=== PATIENT | male | born 1950 | race Caucasian/White ===

== ENCOUNTER 2017-01-13 12:13 | Inpatient (IN) | payer OTHER, MEDICAID ==
[2017-01-13] MEDS ORDERED: NS 1,000 ML IV ONE (12:27)
--- NOTE | 2017-01-13 12:27 | EDPHY ---
HPI/HX/ROS/PE/MDM Narrative: CHIEF COMPLAINT: Fatigue, nausea, vision changes HPI: The patient is a 66 y/o male, with a history of metastatic pancreatic cancer and biliary obstruction, arriving with his at the referral of his oncologist for admission. He was admitted about 1 month ago for abscess in his liver. He was discharged home and subsequently needed an ERCP at [facility]. For the last several days he has been getting IV antibiotics under the care of Dr. Ortega. He's also had progressively worsening nausea during this time. He tells me in the last two days he's been quite fatigued and weak to the point that he is unable to walk short distances across the room. Yesterday after returning home from his IV antibiotic treatment he vomited and was dizzy. This morning he fell and his reports he's had several falls recently, though they both deny head strike or loss of consciousness. The patient endorses headache vision changes that are much worse today. They do not believe he's had brain imaging recently. REVIEW OF SYSTEMS: Aside from elements discussed in the HPI, a comprehensive 10-point review of systems was reviewed and is negative. PMH: Metastatic pancreatic cancer Oncologist: Dr. Snyder SOCIAL HISTORY: at bedside. PHYSICAL EXAM: General:Patient is alert, thin, cachectic, in no acute distress. ENT:Eyes are normal to inspection. ENT inspection normal. Neck: Normal inspection. Full range of motion. Respiratory:No respiratory distress. Breath sounds normal bilaterally. Cardiovascular: Regular rate and rhythm. Strong peripheral pulses. Normal cap refill. Abdomen:The abdomen is nontender to palpation. There are no peritoneal signs. Back: Normal to inspection. No tenderness to palpation. Skin: Normal color. No rash. Warm and dry. Extremities: Normal appearance. Full range of motion. Neuro: Oriented x3. Normal motor function. Normal sensory function. Pronounced vertical nystagmus. ED Course: IV established. Labs drawn including CBC, CHEM, LFTs, PTPTT. 1L IV NS, 4mg IV Zofran administered. Patient declines pain mediation at this time. Head CT ordered. 1340: Head CT shows non-acute occipital lobe stroke. He is well outside the window for intervention such as TPA. Reassessed patient and discussed these findings. He is now complaining of some left-sided chest pain. EKG, chest x-ray , and troponin ordered. The 12 lead EKG was interpreted by myself. See hard copy and/or "tracemaster" electronic copy for interpretation. 1350: Consulted with Dr. Snyder, patient's oncologist, in the ED. She reports he has a complicated history and will follow his admission closely. She will assess patient in the ED. 1402: Spoke with hospitalist service. Dr. Michel accepts admission. Troponin elevated at .225. Hospitalist is aware. - Data Points Imaging Results: Imaging Impressions Head CT 01/13/17 12:53 Impression: New moderate size ischemic infarction involving the right occipital lobe. Results called to Dr. Raffi Lobato at 1:40 PM at the time of the interpretation. Imaging: Discussed imaging studies w/ call center analyst Radiologist, I viewed and interpreted images myself Laboratory Results: Laboratory Results 01/13/17 13:04 01/13/17 13:04 01/13/17 01/13/17 01/13/17 Unknown 13:04 13:04 WBC RBC Hgb Hct MCV MCH MCHC RDW Plt Count MPV Neut % (Auto) Lymph % (Auto) [place] % (Auto) Eos % (Auto) Baso % (Auto) Nucleat RBC Rel Count Absolute Neuts (auto) Absolute Lymphs (auto) Absolute Monos (auto) Absolute Eos (auto) Absolute Basos (auto) Absolute Nucleated RBC Immature Gran % Immature Gran # PT 17.2 SEC H SEC (12.0-15.0) INR 1.41 H (0.83-1.16) APTT 30.0 SEC SEC (23.0-38.0) Sodium 132 mEq/L L mEq/L (134-144) Potassium 3.8 mEq/L mEq/L (3.5-5.2) Chloride 99 mEq/L mEq/L (97-110) Carbon Dioxide 29 mEq/l mEq/l (22-31) Anion Gap 4 mEq/L L mEq/L (8-16) BUN 18 mg/dL mg/dL (7-23) Creatinine 0.8 mg/dL mg/dL (0.7-1.3) Estimated GFR > 60 Glucose 100 mg/dL mg/dL (70-100) Calcium 8.0 mg/dL L mg/dL (8.5-10.4) Total Bilirubin 1.3 mg/dL mg/dL (0.1-1.4) Conjugated Bilirubin 0.5 mg/dL mg/dL (0.0-0.5) Unconjugated Bilirubin 0.8 mg/dL mg/dL (0.0-1.1) AST 47 IU/L IU/L (17-59) ALT 37 IU/L IU/L (21-72) Alkaline Phosphatase 164 IU/L H IU/L (38-126) Troponin I 0.225 ng/mL H ng/mL (0-0.034) Total Protein 6.1 g/dL L g/dL (6.3-8.2) Albumin 2.6 g/dL L g/dL (3.5-5.0) 01/13/17 13:04 WBC 13.73 10^3/uL H 10^3/uL (3.80-9.50) RBC 3.64 10^6/uL L 10^6/uL (4.40-6.38) Hgb 11.3 g/dL L g/dL (13.7-17.5) Hct 34.3 % L % (40.0-51.0) MCV 94.2 fL fL (81.5-99.8) MCH 31.0 pg pg (27.9-34.1) MCHC 32.9 g/dL g/dL (32.4-36.7) RDW 15.3 % H % (11.5-15.2) Plt Count 143 10^3/uL L 10^3/uL (150-400) MPV 9.3 fL fL (8.7-11.7) Neut % (Auto) 85.0 % H % (39.3-74.2) Lymph % (Auto) 4.9 % L % (15.0-45.0) [place] % (Auto) 9.1 % % (4.5-13.0) Eos % (Auto) 0.2 % L % (0.6-7.6) Baso % (Auto) 0.1 % L % (0.3-1.7) Nucleat RBC Rel Count 0.0 % % (0.0-0.2) Absolute Neuts (auto) 11.67 10^3/uL H 10^3/uL (1.70-6.50) Absolute Lymphs (auto) 0.67 10^3/uL L 10^3/uL (1.00-3.00) Absolute Monos (auto) 1.25 10^3/uL H 10^3/uL (0.30-0.80) Absolute Eos (auto) 0.03 10^3/uL 10^3/uL (0.03-0.40) Absolute Basos (auto) 0.02 10^3/uL 10^3/uL (0.02-0.10) Absolute Nucleated RBC 0.00 10^3/uL 10^3/uL (0-0.01) Immature Gran % 0.7 % % (0.0-1.1) Immature Gran # 0.09 10^3/uL 10^3/uL (0.00-0.10) PT INR APTT Sodium Potassium Chloride Carbon Dioxide Anion Gap BUN Creatinine Estimated GFR Glucose Calcium Total Bilirubin Conjugated Bilirubin Unconjugated Bilirubin AST ALT Alkaline Phosphatase Troponin I Total Protein Albumin Medications Given: Discontinued Medications Sodium Chloride (Ns) 1,000 mls @ 0 mls/hr IV ONCE ONE PRN Reason: Wide Open Stop: 01/13/17 12:28 Last Admin: 01/13/17 13:05 Dose: 1,000 mls Ondansetron HCl (Zofran) 4 mg IVP EDNOW ONE Stop: 01/13/17 12:54 Last Admin: 01/13/17 14:07 Dose: 4 mg General Time Seen by Provider: 01/13/17 12:19 Initial Vital Signs: Initial Vital Signs Temperature (C) 36.4 C 01/13/17 12:34 Heart Rate 93 01/13/17 12:34 Respiratory Rate 17 01/13/17 12:34 Blood Pressure 111/84 H 01/13/17 12:34 O2 Sat (%) 94 01/13/17 12:34 O2 Delivery Mode Room Air Allergies/Adverse Reactions: No Known Allergies Allergy (Verified 11/12/15 09:12) Home Medications: Medication Instructions Recorded Ciprofloxacin HCl [Ciprofloxacin 500 mg PO BID 01/13/17 HCl] DAPTOmycin [Cubicin 500mg vial (*)] 450 mg IV DAILY 01/13/17 Ertapenem [Invanz] 1 gm IV DAILY 01/13/17 LORazepam [Ativan (*)] 1 mg PO DAILY PRN 01/13/17 Ondansetron [Zofran Odt] 8 mg PO DAILY PRN 01/13/17 Potassium Chloride [Klor-Con M20] 20 meq PO BID 01/13/17 Zolpidem Tartrate [Ambien 5MG (*)] 5 mg PO HS PRN 01/13/17 Departure - Departure Disposition: [facility] Inpatient Acute Clinical Impression: metastatic, Occipital stroke, non-acute, Vision changes, Weakness, Elevated troponin Pancreatic cancer Qualifiers: Pancreatic malignancy location: other parts of pancreas Qualified Code(s): C25.7 - Malignant neoplasm of other parts of pancreas Nausea & vomiting Qualifiers: Vomiting type: unspecified Vomiting Intractability: non-intractable Qualified Code(s): R11.2 - Nausea with vomiting, unspecified Chest pain Qualifiers: Chest pain type: other chest pain Qualified Code(s): R07.89 - Other chest pain Condition: Fair Referrals: Marlena Snyder MD [Primary Care Provider] - As per Instructions Report Scribed for: Raffi Lobato Report Scribed by: Ambika Niño Date of Report: 01/13/17 Time of Report: 12:26 Physician Review and Approval Statement: Portions of this note were transcribed by an ED scribe. I personally performed the history, physical exam, and medical decision making; and confirm the accuracy of the information in the transcribed note.
[2017-01-13] MEDS ORDERED: ONDANSETRON 4 MG/2 ML VIAL IVP ONE (12:53)
[2017-01-13 13:19] LABS: % IMMATURE GRANULYOCYTES 0.7 % (0.0-1.1); ABSOLUTE IMMATURE GRANULOCYTES 0.09 10^3/uL (0.00-0.10); ADD DIFF? NO; ADD MORPH? NO; ADD SCAN? NO; ATYPICAL LYMPHOCYTE FLAG 10 (0-99); FRAGMENT RBC FLAG 0 (0-99); HEMATOCRIT 34.3 % (40.0-51.0); HEMOGLOBIN 11.3 g/dL (13.7-17.5); LEFT SHIFT FLG 0 (0-99); LIPEMIA HEMOLYSIS FLAG 80 (0-99); MEAN CELL HEMOGLOBIN CONCENTR. 32.9 g/dL (32.4-36.7); MEAN CELL VOLUME 94.2 fL (81.5-99.8); MEAN PLATELET VOLUME 9.3 fL (8.7-11.7); PLATELET CLUMPS FLAG 0 (0-99); PLATELET COUNT 143 10^3/uL (150-400); RED BLOOD CELL COUNT 3.64 10^6/uL (4.40-6.38); RED CELL DISTRIBUTION WIDTH 15.3 % (11.5-15.2)
[2017-01-13 13:34] LABS: INR 1.41 (0.83-1.16); PROTIME(PATIENT) 17.2 SEC (12.0-15.0)
[2017-01-13 13:36] LABS: ALANINE AMINOTRANSFERASE 37 IU/L (21-72); ALBUMIN 2.6 g/dL (3.5-5.0); ALKALINE PHOSPHATASE 164 IU/L (38-126); ANION GAP 4 mEq/L (8-16); ASPARTATE AMINOTRANSFERASE 47 IU/L (17-59); BILIRUBIN,TOTAL 1.3 mg/dL (0.1-1.4); BILIRUBIN-CONJUGATED 0.5 mg/dL (0.0-0.5); BILIRUBIN-UNCONJUGATED 0.8 mg/dL (0.0-1.1); CARBON DIOXIDE 29 mEq/l (22-31); CHLORIDE 99 mEq/L (97-110); CREATININE 0.8 mg/dL (0.7-1.3); GLOMERULAR FILTRATION RATE > 60; GLUCOSE 100 mg/dL (70-100); POTASSIUM 3.8 mEq/L (3.5-5.2); SODIUM 132 mEq/L (134-144); TOTAL PROTEIN 6.1 g/dL (6.3-8.2)
--- NOTE | 2017-01-13 14:07 | CPEKG ---
Heart Rate: 80 RR Interval: 750 P-R Interval: 188 QRSD Interval: 98 QT Interval: 384 QTC Interval: 443 P [place]: 37 QRS [place]: 13 T Wave [place]: 30 EKG Severity - NORMAL ECG - EKG Impression: SINUS RHYTHM Electronically Signed By: Kaila Smalls 13-Jan-2017 22:31:52
[2017-01-13 14:09] LABS: TROPONIN I 0.225 ng/mL (0-0.034)
[2017-01-13] MEDS ORDERED: PROMETHAZINE HCL 25 MG/ML INJ IVP PRN (15:16)
[2017-01-13] MEDS ORDERED: HYDROmorphONE/DILAUDID 1 MG/ML SYR IVP PRN (15:16)
[2017-01-13] MEDS ORDERED: ACETAMINOPHEN 325 MG TAB PO PRN (15:16)
[2017-01-13] MEDS ORDERED: ZOLPIDEM TARTRATE 5 MG TAB PO PRN (15:17)
[2017-01-13] MEDS ORDERED: MECLIZINE HCL 25 MG TAB PO PRN (15:17)
[2017-01-13] MEDS: DEXAMETHASONE 4 MG/ML VIAL IVP SCH ×2 (15:29→20:47)
--- NOTE | 2017-01-13 15:44 | GHP ---
[f rep st] HISTORY AND PHYSICAL DATE OF ADMISSION: 01/13/2017 CHIEF COMPLAINT: Dizziness and anorexia. HISTORY OF PRESENT ILLNESS: This is a 66-year-old male recently diagnosed with metastatic pancreatic cancer. His course has been complicated by biliary obstruction and infection, requiring biliary stent placement in March 2016. His cancer has been unresponsive to chemotherapy, which was last received in November 2016. The patient traveled to [place], [place] at the end of November of this year, where he developed a fever as well as nausea, vomiting and abdominal pain, and was subsequently diagnosed with ascending cholangitis, liver abscess and polymicrobial bacteremia. During that hospital stay, liver drains were placed, which are still in. He tells me his liver drains have not been putting out very much fluid recently. He has been receiving outpatient IV antibiotics under the care of Dr. Ortega, This morning, the patient awoke with vision changes and dizziness. He describes his vision as blurriness and inability to control his eyes. He feels extremely off balance. Once again, he has not been eating much, but this has been going on for the past 5 weeks. He has had multiple bouts of vomiting. He denies any fevers or chills. The patient has been having off and on chest pain that he describes as dull and left-sided. He is unable to tell me if it is exertional. Currently, he is chest painfree. PAST MEDICAL HISTORY: 1. Metastatic pancreatic cancer. 2. Sepsis. 3. Mitral valve repair. 4. Biliary stent placements in March 2016 with repeat stenting done last week at the [facility]. 5. Non-ST segment elevation NH diagnosed during his hospitalization in [place]. MEDICATIONS: Home medications were reviewed. Refer to [employer] for details. ALLERGIES: No known drug allergies. SOCIAL HISTORY: He is . He denies any alcohol, tobacco, or illicit drug use. FAMILY HISTORY: Reviewed and noncontributory. REVIEW OF SYSTEMS: Comprehensive 10-point review of systems was done and is negative, except for as mentioned in the HPI. PHYSICAL EXAM: VITAL SIGNS: Blood pressure 139/89, pulse of 83, respiratory rate 18, O2 saturation 95% on room air, temperature afebrile. GENERAL: Chronically ill-appearing. HEAD: Normocephalic, atraumatic. MOUTH: Dry oral mucosa. NECK: Supple. No lymphadenopathy. CARDIOVASCULAR: S1, S2. No JVD. No lower extremity edema. PULMONARY: Lungs are clear. No wheezes, rales, or rhonchi. ABDOMEN: Soft, but is diffusely tender to palpation. There is mild distention. Bowel sounds are diminished. 2 liver dra[address] are in place in the right upper quadrant. The skin is mildly erythematous, but not obviously infected. EXTREMITIES: No clubbing or cyanosis. NEURO: Cranial nerves II through XII grossly intact. Face is symmetric. SKIN: Clear. No rashes. DIAGNOSTICS: WBC is 13.7, hemoglobin 11.3, hematocrit 34.3, platelets 143. INR 1.41. Sodium 132, potassium 3.8, chloride 99, BUN 18, creatinine 0.8, glucose 100, calcium 8, total bilirubin 1.3, AST 47, ALT 37, alkaline phosphatase 164. Troponin elevated at 0.225. EKG, which I visualized and personally interpreted, shows sinus rhythm, rate 80 beats per minute, some inverted T-waves in V1. No obvious ST segment elevation. Chest x-ray, which I visualized and personally interpreted, final read is pending. He has a small right-sided pleural effusion. No obvious pneumonia. Medication port in place. Head CT shows new moderate-sized ischemic infarction involving the right occipital lobe. ASSESSMENT AND PLAN: This is a 66-year-old male with metastatic pancreatic cancer that has not responded to chemotherapy, presenting with dizziness and visual changes and found to have: 1. Suspected subacute moderate-sized ischemic infarction involving the right occipital lobe. Plan: Discussed case with Dr. Marlena Snyder, who is one of his oncologist's, who has talked to the patient and would like to pursue comfort measures. We will defer further stroke workup given the underlying pancreatic cancer and his overall poor prognosis. 2. Elevated troponin, possibly due to demand ischemia versus non-ST elevation myocardial infarction. Plan: I offered further workup and intervention to the patient including cardiology consultation, which at this time they would like to defer and focus on comfort. We will continue to cycle his troponins. 3. Intractable nausea, vomiting and abdominal pain. Plan: We will start a trial of Decadron and continue Zofran and Phenergan. He will be continued on IV fluids. 4. Polymicrobial Klebsiella/Citrobacter/Enterococcus bacteremia and liver abscess from ascending cholangitis, status post biliary stent exchange on 2016. PLAN: Once again the patient has been under the care of Dr. Ortega from Infectious Disease who should be consulted in the morning. For now, we will continue his daptomycin 450 mg IV daily for VRE as well as ertapenem 1 g IV for aerobic gram-negative positive as well as anaerobic coverage. DISPOSITION: At this time, the patient will be admitted to the hospital under inpatient status. Palliative care/hospice consultation will be ordered. /[id number]/MODL and [id number]/MODL. MTDD
[2017-01-13] MEDS ORDERED: BISACODYL 10 MG SUPP PR PRN (16:28)
[2017-01-13] MEDS: D5W NS W/ 20 KCl/L 1,000 ML IV SCH (18:12)
[2017-01-13] MEDS: ERTAPENEM 1 GM in NS 100 ML IV SCH (18:13)
--- NOTE | 2017-01-13 19:44 | GCON ---
[f rep st] CONSULTATION ONCOLOGY CONSULTATION. REASON FOR CONSULTATION: Metastatic pancreatic cancer. HISTORY OF PRESENT ILLNESS: The patient is a 66-year-old gentleman with metastatic pancreatic cancer whom I met in the fall of 2014 when he presented with obstructive jaundice. 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 Biliary stent was performed. He received initial first-line chemotherapy with Abraxane and gemcitabine from 2004 to 02/2016, completing 10 cycles with excellent response. At that time, we observed him without chemotherapy due to side effects. He developed progression in the fall and resumed second-line chemotherapy with 5FU/ leucovorin and liposomal irinotecan beginning 05/2016. This was discontinued following 12 cycles (11/15/2016) due to progression. He was hoping to participate in a phase 1 vaccine trial. While traveling in [place] in November, he was admitted there with polymicrobial sepsis and hepatic abscesses. Two drains were placed in the right liver. Blood cultures were positive for Klebsiella, Citrobacter, and Enterococcus faecalis. Enterococcus was vancomycin and ampicillin sensitive. Fluid from the abscess demonstrated Enterococcus faecium, resistant to ampicillin, sensitive to daptomycin, sensitive to linezolid, resistant to penicillin and resistant to vancomycin. He was initially treated there with Zosyn and discharged on Augmentin and ciprofloxacin. He then returned home to [place]. He saw Dr. Ortega in consultation who changed his antibiotics to ertapenem and daptomycin which he has been receiving IV in the [facility]. Followup blood cultures were negative. End date of antibiotics was anticipated to be . Dr. Bolton is his general adjuster. He was unable to replace the biliary stent recently and the patient was seen at the [facility] on with placement of a new stent. I do not have those records. The patient has been struggling over the last couple of weeks with nausea, vomiting, and weakness. He has been on scheduled Zofran and continues to have problems. He has not had a bowel movement since Sunday. He is taking very little orally. He has been receiving IV fluids when he comes for antibiotics. He has had no fevers or chills. He called today with continued nausea, vomiting , and feeling "wobbly." He has also had vision changes over the last few days. He describes "geometric shapes" and the inability to focus. This is not restricted to a specific quadrant or field of vision. He also describes "hallucinations" such as thinking he was looking at buildings when he was looking at the mountains. Dennise and Jose Manuel met with [facility] on Sunday for an informational meeting regarding palliative care and hospice services. PAST MEDICAL HISTORY: 1. Metastatic pancreatic cancer as above. 2. Mitral valve repair, 2011. PAST SURGICAL HISTORY: Appendectomy 2012. MEDICATIONS: 1. Ertapenem and daptomycin per Dr. Ortega. 2. He was prescribed ciprofloxacin by the general adjuster at post procedure. 3. Ondansetron. 4. Omeprazole. 5. Ativan p.r.n. 6. Compazine p.r.n. 7. He recently started MS Contin 15 mg b.i.d. 8. He has been using a variety of breakthrough medications including Dilaudid and oxycodone which were prescribed in [place]. ALLERGIES: No known drug allergies. SOCIAL HISTORY: He has been with his partner, Dennise Sher since 2008. They live in [place]. She is his medical power of civil rights attorney. FAMILY HISTORY: His mother at 75 from some type of abdominal cancer. His father had some type of smoking related cancer. He has no children. REVIEW OF SYSTEMS: CONSTITUTIONAL: No fevers or chills. Weight loss. Significant fatigue. He reports spending most of the day in bed or lying down. VISION: Per history of present illness. HEENT: No mucositis. CARDIOVASCULAR: No palpitations. He has had some left-sided chest pain. RESPIRATORY: No cough, dyspnea, pleurisy. GASTROINTESTINAL: Per history of present illness. Dennise reports about 30 cc of drainage from the posterior hepatic drain and nothing from the more anterior drain. NEUROLOGIC: He has had some headaches. Vision as above. No numbness, focal weakness. HEMATOLOGIC : No bleeding or bruising. MUSCULOSKELETAL: No new bony complaints. PHYSICAL EXAMINATION: VITAL SIGNS: Blood pressure 111/84, pulse 93, respirations 17, 94% on room air, temperature 36.4. GENERAL: Thin, fatigued appearing gentleman in no acute distress. HEENT: No scleral icterus. He had some vertical nystagmus when I first saw him in the emergency room. NECK: Supple. CARDIOVASCULAR: Regular rate and rhythm, 1+ bilateral pedal edema. LUNGS: Clear to auscultation bilaterally. ABDOMEN: There are 2 right-sided drains. Positive bowel sounds. Diffuse tenderness without peritoneal signs. NEUROLOGIC: Cranial nerves 3 through 12 intact. No focal findings. LABORATORY STUDIES: WBC 13.7, hemoglobin 11.3, platelets 143,000. Sodium 132, potassium 3.8, chloride 99, bicarbonate 29, BUN 18, creatinine 0.8, glucose 100. Total bilirubin 1.3, direct 0.5, normal transaminases, alkaline phosphatase 164, albumin 2.6. Troponin 0.225. INR 1.4, PTT 30. RADIOLOGIC STUDIES: Noncontrast head CT compared with outside CT from 2016 demonstrates hypodensity in the right occipital lobe, compatible with subacute ischemic infarction in the distribution of the posterior cerebral artery. No evidence of mass or mass effect. No hemorrhage. ADDITIONAL STUDIES: EKG: Normal sinus rhythm, normal. IMPRESSION: 1. Progressive metastatic pancreatic cancer to liver. 2. Refractory nausea and vomiting. 3. Hepatic abscesses, improving with decreased drainage. Completing course of ertapenem and daptomycin. 4. New right occipital ischemic stroke with visual symptoms. I had a long visit with the patient and Dennise in the ER reviewing all of the above. We have been discussing goals and plans for care and advanced care planning for quite some time. He has significantly declined over the last month. He is not a candidate for further therapy. We discussed focusing on supportive care and symptom management to optimize his quality of life. He is in agreement with that. As such, we discussed having another visit with [facility] while in the hospital to discuss home hospice. He would like to remain at home. We discussed code status and he requests to be DNR, which is appropriate. Regarding the apparent ischemic stroke, there was no obvious mass but it was a noncontrast CT. He does have an underlying hypercoagulable state due to his malignancy. CT with contrast or brain MRI would be appropriate. We would discuss palliative radiation if he had evidence of a metastasis, although I think this is unlikely in the setting of pancreatic cancer. In terms of his nausea and anorexia, I recommend a trial of steroids ( dexamethasone 4 mg b.i.d.). His infection is under control and I think the benefit outweighs risk. If ID feels he needs to continue antibiotics, perhaps those can be changed to oral to facilitate him being at home. PLAN: 1. IV fluids, antiemetics. 2. Consider further [employer] imaging. 3. Will reevaluate tomorrow the timing of another meeting with Hospice. 4. Dexamethasone 4 mg b.i.d. 5. DNR. /[id number]/MODL MTDD
[2017-01-13] MEDS: DAPTOmycin 450 MG in NS 100 ML IV SCH (20:30)
[2017-01-13] MEDS: POTASSIUM CL 20 MEQ TAB PO SCH (20:47)
[2017-01-13] MEDS: LORazepam 1 MG TAB PO PRN (20:49)
[2017-01-13] MEDS: ONDANSETRON 4 MG/2 ML VIAL IVP PRN (21:02)
[2017-01-14 05:21] LABS: % IMMATURE GRANULYOCYTES 0.7 % (0.0-1.1); ABSOLUTE IMMATURE GRANULOCYTES 0.12 10^3/uL (0.00-0.10); ADD DIFF? NO; ADD MORPH? NO; ADD SCAN? NO; ATYPICAL LYMPHOCYTE FLAG 10 (0-99); FRAGMENT RBC FLAG 0 (0-99); HEMATOCRIT 34.9 % (40.0-51.0); HEMOGLOBIN 11.5 g/dL (13.7-17.5); LEFT SHIFT FLG 0 (0-99); LIPEMIA HEMOLYSIS FLAG 80 (0-99); MEAN CELL HEMOGLOBIN 30.9 pg (27.9-34.1); MEAN CELL VOLUME 93.8 fL (81.5-99.8); MEAN PLATELET VOLUME 10.1 fL (8.7-11.7); PLATELET CLUMPS FLAG 10 (0-99); PLATELET COUNT 126 10^3/uL (150-400); RED BLOOD CELL COUNT 3.72 10^6/uL (4.40-6.38); RED CELL DISTRIBUTION WIDTH 15.2 % (11.5-15.2)
[2017-01-14] MEDS: D5W NS W/ 20 KCl/L 1,000 ML IV SCH ×2 (05:26→18:58)
[2017-01-14 05:52] LABS: ALANINE AMINOTRANSFERASE 46 IU/L (21-72); ALBUMIN 2.4 g/dL (3.5-5.0); ALKALINE PHOSPHATASE 157 IU/L (38-126); ANION GAP 4 mEq/L (8-16); ASPARTATE AMINOTRANSFERASE 57 IU/L (17-59); CALCIUM 7.8 mg/dL (8.5-10.4); CARBON DIOXIDE 26 mEq/l (22-31); CHLORIDE 102 mEq/L (97-110); CREATININE 0.7 mg/dL (0.7-1.3); GLOMERULAR FILTRATION RATE > 60; GLUCOSE 181 mg/dL (70-100); POTASSIUM 4.6 mEq/L (3.5-5.2); SODIUM 132 mEq/L (134-144); TOTAL PROTEIN 5.8 g/dL (6.3-8.2)
[2017-01-14] MEDS: DEXAMETHASONE 4 MG/ML VIAL IVP SCH ×2 (08:16→21:04)
[2017-01-14] MEDS: POTASSIUM CL 20 MEQ TAB PO SCH ×2 (08:16→21:05)
[2017-01-14] MEDS: ERTAPENEM 1 GM in NS 100 ML IV SCH (08:17)
[2017-01-14] MEDS: ENOXAPARIN 40 MG/0.4 ML SYR SC SCH (08:17)
[2017-01-14] MEDS: ONDANSETRON 4 MG/2 ML VIAL IVP PRN (08:35)
[2017-01-14] MEDS ORDERED: DAPTOMYCIN IV SCH (09:00)
[2017-01-14] MEDS ORDERED: ERTAPENEM 1 GM VIAL IV SCH (09:00)
[2017-01-14] MEDS: DAPTOmycin 450 MG in NS 100 ML IV SCH (10:10)
[2017-01-14] MEDS ORDERED: ASPIRIN 325 MG TAB PO ONE ×2 (10:31→14:45)
--- NOTE | 2017-01-14 11:10 | HOSPPROG ---
Hospitalist Progress Note Assessment/Plan: Occipital CVA with blurred vision - give ASA now, continue daily ASA. Proceed with MRI to evaluate for metastatic component as palliative radiation may be an option. Per H&P, no further w/u was desired. However, pt and his wish to pursue further workup. Will order echo and Neurology consult requested. D/W onc and prefer to keep him on 1N for oncology support. Will defer tele and plan for qd ekg to monitor for a fib. Not likely a good candidate for anticoagulation from onc perspective. Metastatic pancreatic cancer - wishes to consider further treatment options. Pt himself seems more realistic about his terminal illness and they will have palliative care and hospice consults to discuss further. Pain control is addressed, added MS Contin and oral dilaudid. Polymicrobial bacteremia in the setting of ascending cholangitis with liver drains present - on IV ertapenem and daptomycin, followed by Dr. Ortega. Last day of atbx is tomorrow. A GI doc in [place] added oral cipro 2 days ago after placement of a biliary stent, will continue this for now. Elevated troponin - trop is flat, possibly chronic. Pt is chest pain free. No further w/u given limited life expectancy. DNR Dispo - cont inpt, hospice and palliative care consults planned. Subjective: Pt complains of blurred vision. Poor pain control. No fevers. Poor appetite. Had biliary stent placed 2 days ago and cipro added to his daily IV ertapenem and daptomycin. Objective: Vital Signs Temp Pulse Resp BP Pulse Ox 36.4 C 87 18 130/89 H 92 01/14/17 07:20 01/14/17 07:20 01/14/17 07:20 01/14/17 07:20 01/14/17 07:20 Laboratory Results 01/14/17 05:00 01/14/17 05:00 01/13/17 01/14/17 01/15/17 05:59 05:59 05:59 Intake Total 1100 Output Total 625 Balance 475 PT 17.2 SEC (12.0-15.0) H 01/13/17 13:04 INR 1.41 (0.83-1.16) H 01/13/17 13:04 - Physical Exam Constitutional: chronically ill appearing Eyes: other (blurred vision) Ears, Nose, Mouth, Throat: moist mucous membranes Cardiovascular: regular rate and rhythym Respiratory: no respiratory distress, clear to auscultation Gastrointestinal: normoactive bowel sounds, soft, non-tender abdomen, other ( some output from 1/2 liver drains) Skin: warm Musculoskeletal: full muscle strength ICD10 Worksheet Patient Problems: Problems Problem Status Onset Chest pain Acute Elevated troponin Acute Hypokalemia Acute Nausea & vomiting Acute Occipital stroke Acute Pancreatic cancer Acute Vision changes Acute Weakness Acute
[2017-01-14] MEDS ORDERED: GADOBUTROL 10 ML VIAL IVP ONE (12:02)
[2017-01-14] MEDS: ASPIRIN 81 MG CHEWABLE TAB PO SCH ×2 (13:14→17:09)
[2017-01-14] MEDS: ATORVASTATIN CALCIUM 20 MG TAB PO SCH (13:14)
--- NOTE | 2017-01-14 13:14 | CPEKG ---
Heart Rate: 82 RR Interval: 732 P-R Interval: 184 QRSD Interval: 94 QT Interval: 348 QTC Interval: 407 P [place]: 41 QRS [place]: 9 T Wave [place]: 25 EKG Severity - OTHERWISE NORMAL ECG - EKG Impression: SINUS RHYTHM EKG Impression: NS IVCD EKG Impression: LOW VOLTAGE IN FRONTAL LEADS EKG Impression: COMPARED WITH 13 JAN 2017, NO SIG CHANGE Electronically Signed By: Tonia Morgan 14-Jan-2017 15:45:07
[2017-01-14] MEDS: morphINE SR 15 MG TAB PO SCH ×2 (13:15→21:05)
[2017-01-14] MEDS: ONDANSETRON 4 MG/2 ML VIAL IVP SCH ×2 (16:04→22:07)
--- NOTE | 2017-01-14 16:08 | NEUROPROG ---
Assessment: CC: Sub-actue Right Occipital Stroke HPI: This 66M patient was initially seen as an inpatient consult on 01/14/17. He was admitted to [facility] on 01/13/17. He had a history of metastatic pancreatic cancer refractory to chemotherapy. His course has been complicated by biliary obstruction and infx requiring stent placement . He recently had ascending cholangitis, liver abscess, and plymicrobial bacteremia. He recently had liver drains placed and has been getting otpt IV abx under the care of Dr. Ortega. He awoke in the morning of 01/14/17 with dizziness, N/V, balance issues , and vision changes (blurriness, eye movement control issues). He also had dull left sided chest pain. A head CT was performed and showed a new subacute right occipital stroke prompting neurology consult. PMHx: metastatic pancreatic cancer, sepsis, MV repair, biliary stent , NSTEMI SHx: no tobacco FHx: NC ROS: Pt denied acute fever, total vision loss, active severe chest pain, respiratory failure, total body severe rash, total bowel/bladder incontinence, psychosis, active seizures, or active bleeding O: VS bp 130/89 P87 RR18 Satting 92% RA Temp 36.4C General: Alert Eyes: Fundoscopic exam not able to visualize optic disks CV: Heart RRR, no murmur, no carotid bruit Lungs: Clear to auscultation bilaterally, no rhonci or rales Neuro: - Mental: he seems to have some subtle cognitive impairments . Oriented x person/place/date . concentration appears slightly decreased . speech fluency/comprehension normal . memory appears normal . fund of knowledge appear intact - Cranial Nerves: . II: PERRL, VFFTC . III/IV/: EOM impaired with problems looking left, has some up beat nystagmus in both eyes at times, no ptosis . V: facial sensation intact to LT . VII: face symmetric to eye closure and smile . VIII: hearing intact to conversation . IX/X: uvula raises symmetrically . XI: SCM 5/5 B/L strength . XII: tongue protrudes midline w/nl strength - Motor: . Tone: normal tone in all 4 extrem . 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, hf/he, df/pf) - Reflexes: B/L bic/BR/patella 0/4 - Sensory: all 4 extrem intact to light touch - Coord: slight ataxia throughout arms and legs - Gait: deferred -NIHSS: 3 (1 for left gaze issues, 2 for ataxia in arms and legs which seems most likely to be from polyneuroapthy) Labs: 01/13/17- CBC WBC 18.01 Hct 34.9L Plt 126L, INR 1.41, APTT wnl, CMP Na 132L Ca 8L Alk Phos 164H Alb 2.6L, Trop 0.226H Rads: 01/13/17- Head CT w/o con: new mod size R occipital CVA (I personally visualized the images on 01/14/17) Assessment: 1.Right Occipital Stroke and bilateral supra and infratentorial punctate strokes : It appears he likely had proximal embolic events from his heart with a larger emboli to his R [employer] to explain his R occipital stroke causing vision problems. He has declined carotid U/S or head CTA at this time and echocardiogram is pending. We can consider anti-coagulation at the time of discharge based on the clinical situation. Continuous telemetry is not available on 1N which is the ideal place for this patient given his underlying cancer. Discussion between the hospitlaist and the oncologist concluded that it seems safer to keep him on 1N to focus on the cancer and instead of getting continous telemtry just get daily EKGs looking for paroxysmal afib. 2. Probable Polyneuropathy: He has reduced reflexes and slight ataxia in arms/ legs likely reprsenting an underlying polyneuropathy likely from chemotherapy. Treatment would be attempting to avoid chemo therapy that causes polyneuropathy. 3.Metastatic Pancreatic Cancer 4.Elevated Troponin: defer management to hospitalist 5.Bactermia and Liver Abscess: Managed by ID Plan: -BP goal < 220/120 x 48 hours then < 140/90 -LDL goal < 70, LDL lab pending -H1AC goal < 7.0, H1AC lab pending -Start Aspirin 325mg qd, consider anti-coagulation at discharge if cardio- embolic stroke source confirmed -DVT prophy -PT/OT/SPeech consults pending -Carotid U/S (pt declined this study on 01/14/17) -TTE pending -24 hour telemetry not possible as oncology feels provides better care for his cancer, will recommend daily EKGs to eval for paroxysmal afib -Agree with ID and Oncology consults -Pt can f/u with Dr. Torres or Dr. Godinez 4-6 weeks after hospital discharge to further evaluate polyneuropathy and stroke sequelae Neurology will continue to follow closely, Dr. Tu Godinez will take over the neurology service tomorrow. Objective: Vital Signs Temp Pulse Resp BP Pulse Ox 36.5 C 83 16 131/88 H 91 L 01/14/17 12:00 01/14/17 12:00 01/14/17 12:00 01/14/17 12:00 01/14/17 12:00 Laboratory Results 01/14/17 05:00 01/14/17 05:00 01/13/17 01/14/17 01/15/17 05:59 05:59 05:59 Intake Total 1100 Output Total 625 Balance 475 PT 17.2 SEC (12.0-15.0) H 01/13/17 13:04 INR 1.41 (0.83-1.16) H 01/13/17 13:04 Allergies/Adverse Reactions: No Known Allergies Allergy (Verified 11/12/15 09:12)
--- NOTE | 2017-01-14 16:58 | SOAPPROG ---
SOAP Progress Note Assessment/Plan: A/P: * Refractory nausea: possibly some improvement with addition of dex. Schedule Zofran. If continued nausea, would add olanzapine (5 mg QD). * Hepatic abscesses: will complete abx 01/15/17. Probably can d/c anterior drain. Posterior drain still with some output. Will discuss with Dr. Ortega on Sunday. * Embolic strokes: brain MRI with multiple strokes c/w emboli, most likely cardiac. ECHO pending. EKG normal. Do not feel making a dx of Afib is critical as he is not a good candidate for anticoagulation and has limited life expectancy. Would prefer to keep him on 1N for oncology nursing support. ASA ok. Appreciate neurology input. * Metastatic pancreatic cancer: he is not a candidate for further therapy given his poor performance status. We discussed this again today and discussed Dennise's questions about hospice. Plan hospice evaluation. He would like to be at home. DNR. 01/14/17 16:32 Subjective: Vision remains abnormal. Nausea seems a little better. AP doesn't seem as well -controlled. O: VS reviewed. Gen: cachectic. Slightly less clear cognitively than he usually is. Lungs: breathing comfortably. Neuro: vertical nystagmus, otherwise nonfocal. Laboratory Tests 01/14/17 01/14/17 05:00 05:00 WBC 18.01 H Hgb 11.5 L Plt Count 126 L Sodium 132 L Potassium 4.6 Chloride 102 Carbon Dioxide 26 BUN 15 Creatinine 0.7 Glucose 181 H AST 57 ALT 46 Alkaline Phosphatase 157 H EKG: NSR. Brain MRI: multiple strokes. Objective: Vital Signs Temp Pulse Resp BP Pulse Ox 36.9 C 92 18 125/86 H 92 01/14/17 16:10 01/14/17 16:10 01/14/17 16:10 01/14/17 16:10 01/14/17 16:10 Laboratory Results 01/14/17 05:00 01/14/17 05:00 01/13/17 01/14/17 01/15/17 05:59 05:59 05:59 Intake Total 1100 Output Total 625 Balance 475 PT 17.2 SEC (12.0-15.0) H 01/13/17 13:04 INR 1.41 (0.83-1.16) H 01/13/17 13:04 ICD10 Worksheet Patient Problems: Problems Problem Status Onset Chest pain Acute Elevated troponin Acute Hypokalemia Acute Nausea & vomiting Acute Occipital stroke Acute Pancreatic cancer Acute Vision changes Acute Weakness Acute
[2017-01-14] MEDS: POLYETHYLENE GLYCOL 3350 17 GM PKT PO PRN (18:02)
[2017-01-14] MEDS: HYDROmorphONE/DILAUDID 4 MG TAB PO PRN (18:02)
[2017-01-14] MEDS: LORazepam 1 MG TAB PO PRN (21:05)
[2017-01-15 03:55] LABS: % IMMATURE GRANULYOCYTES 0.6 % (0.0-1.1); ABSOLUTE IMMATURE GRANULOCYTES 0.12 10^3/uL (0.00-0.10); ADD DIFF? NO; ADD MORPH? NO; ADD SCAN? NO; ATYPICAL LYMPHOCYTE FLAG 10 (0-99); FRAGMENT RBC FLAG 0 (0-99); HEMATOCRIT 34.2 % (40.0-51.0); HEMOGLOBIN 11.3 g/dL (13.7-17.5); LEFT SHIFT FLG 0 (0-99); LIPEMIA HEMOLYSIS FLAG 80 (0-99); MEAN CELL HEMOGLOBIN 31.8 pg (27.9-34.1); MEAN CELL VOLUME 96.3 fL (81.5-99.8); MEAN PLATELET VOLUME 10.1 fL (8.7-11.7); PLATELET CLUMPS FLAG 10 (0-99); PLATELET COUNT 165 10^3/uL (150-400); RED BLOOD CELL COUNT 3.55 10^6/uL (4.40-6.38); RED CELL DISTRIBUTION WIDTH 15.3 % (11.5-15.2)
[2017-01-15] MEDS: ONDANSETRON 4 MG/2 ML VIAL IVP SCH ×3 (05:51→21:10)
[2017-01-15] MEDS: morphINE SR 15 MG TAB PO SCH ×2 (09:18→21:09)
[2017-01-15] MEDS: ATORVASTATIN CALCIUM 20 MG TAB PO SCH (09:18)
[2017-01-15] MEDS: POTASSIUM CL 20 MEQ TAB PO SCH ×2 (09:18→21:09)
[2017-01-15] MEDS: ASPIRIN 81 MG CHEWABLE TAB PO SCH (09:18)
[2017-01-15] MEDS: ERTAPENEM 1 GM in NS 100 ML IV SCH (09:18)
[2017-01-15] MEDS: ENOXAPARIN 40 MG/0.4 ML SYR SC SCH (09:19)
[2017-01-15] MEDS: DEXAMETHASONE 4 MG/ML VIAL IVP SCH ×2 (09:19→21:09)
[2017-01-15] MEDS: DAPTOmycin 450 MG in NS 100 ML IV SCH (10:39)
--- NOTE | 2017-01-15 11:35 | ECHO ---
[id number] + + [address] : : [place] [address] : : [phone] + + Adult Echocardiographic Report + + :Name: MYRTLE SARAVIA Study Date: 01/14/2017 03:41 PM : : Hospital Admission Number: [id number] : :: 1950 Gender: Male Height: 72 in : :Age: 66 yrs Race: WH Weight: 148 lb : :Reason For Study: Eval LV Fx : : BSA: 1.9 meters2: :History: Metastatic Pancreatic CA, New CVA, Hx of mitral : :valve repair. : + + MMode/2D Measurements \T\ Calculations IVSd: 0.89 cm LVIDd: 5.5 cm FS: 32.1 % Ao root diam: 4.0 cm LVPWd: 0.98 cm LVIDs: 3.7 cm EDV(Teich): 146.2 ml ACS: 2.0 cm ESV(Teich): 58.9 ml EF(Teich): 59.7 % Normal Measurement Values: + + :LVIDd (3.5-5.7cm) IVSd (0.6-1.1cm) LVPWd (0.6-1.1cm) Aortic Root (2.0-3.7cm)Left Atrium (1.5-4.0cm): :LV Vol(d) (76-115ml) LV Vol(s) (29-48ml) Ejec Fraction (50-65%)PV Yahir (0.6- 1.2m/s) TV Yahir (0.4-1.0m/s) : :MV E Yahir (0.8-1.0m/s)MV A Yahir (0.3-1.0m/s)LVOT Yahir (0.7-1.2m/s) Asc Ao Yahri ( 0.9-1.8m/s) : + + Doppler Measurements \T\ Calculations MV E max yahir: MV V2 max: Ao V2 max: LV V1 max: 70.1 cm/sec 103.0 cm/sec 119.0 cm/sec 64.7 cm/sec MV A max yahir: MV max P.2 mmHgAo max P.7 mmHgLV V1 max P.9 cm/sec MV V2 mean: 1.7 mmHg MV E/A: 0.81 60.1 cm/sec MV mean P.0 mmHg MV V2 VTI: 22.4 cm PA V2 max: 70.6 cm/sec PA max P.0 mmHg Left Ventricle The left ventricle is normal in size. There is normal left ventricular wall thickness. Left ventricular systolic function is low normal. Ejection Fraction = 50-55%. There is Doppler evidence for diastolic dysfunction. Right Ventricle The right ventricle is normal in size and function. Atria The left atrial size is normal. Right atrial size is normal. Mitral Valve The mitral valve has been repaired with a mean PG of 3 mmHg. Tricuspid Valve Normal tricuspid valve. There is trace to mild tricuspid regurgitation. Aortic Valve The aortic valve opens well. There is no aortic stenosis. Pulmonic Valve The pulmonic valve is not well visualized. Great Vessels The aortic root is normal size. Pericardium/Pleural There is no pericardial effusion. Conclusion A complete two-dimensional transthoracic echocardiogram was performed (2D, M-mode, Doppler and color flow Doppler). Clinical correlation is recommended. Severely technically limited study with poor acoustic windows. Clinical correlation is recommended due to lung interference, most of exam performed from subcostal view. Left ventricular systolic function is low normal. Ejection Fraction = 50-55%. Regional wall motion abnormalities. cannot be excluded. The right ventricle is normal in size and function. The mitral valve has been repaired with a mean PG of 3 mmHg The aortic valve opens well. There is no pericardial effusion. There is Doppler evidence for diastolic dysfunction. There is trace to mild tricuspid regurgitation. Final Reading Physician: Iván Morrison signed on 01/15/2017 11:34 AM Ordering Physician: Tatiana Corrales Performed By: Benigno Randall RUSS
--- NOTE | 2017-01-15 12:29 | PDPCPN ---
Palliative Care Progress Note Assessment/Plan: Referring provider: Dr Corrales Reason for consult: Complex medical decision making Symptom control HPI: Jose Manuel Quesada is a 66 yo male with PMH metastatic pancreatic ca with mets to lung and MV repair admitted to the hospital with increasing nausea/vomiting and dizziness. Pancreatic ca dx fall 2014 with biliary obstruction s/p stents. Had 2 rounds of chemotherapy with last finishing 10/2016 due to progression. Has had complications with continued biliary obstruction and cholangitis with stent replacement 2 weeks ago at the [facility]. On admission found to have multiple embolic strokes likely cardiac in nature. Started on steroids to help with symptoms of nausea/vomiting and abdominal pain. Palliative care consulted for complex medical decision making. Met with Jose Manuel this AM, he preferred to first speak without Dennise present. He said his understanding is that he has had disease progression through 2 cycles of chemo and now is too weak for further treatment and does not qualify for some clinical trials. He stated he is afraid of falling and has fallen multiple times at home. He is able to scoot up/down stairs but due to dizziness is not able to always be safe. He also has ongoing nausea and abdominal pain. Controlled at present. He understands the nature of his disease and wants to focus on comfort and symptom management. He has spoken with [facility] in the past and stated "I think thats the route to go now". We discussed hospice care and possibilities of the care center as a transition to home. We also discussed having another conversation with Dennise present to further clarify goals and help answer any questions. Assessment: Physical: - Pain: abdominal pain -on MScontin 15mg BID - continue dilaudid PRN - also on steroids dex 4mg BID which may provide some relief - Nausea/vomiting: - on zofran and phenergan. 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 - constipation - dulcolax supp or fleet enema today - bowel regimen with senna and colace Emotional/psychological: tearful at times. Feels he has a differing opinion than his life partner Advanced Care Planning: Is patient decisional?: Yes Code Status: DNR POA: Dennise sig other is MDPOA. Plan: Jose Manuel would like to meet with [facility] hospice again set up for tomorrow at 10 Am. Possibility for the care center before transition home for symptom management. Subjective: I still feel dizzy Objective: Social History: Has life partner Dennise. Lives in [place]. Enjoys skiing, hiking, and mountain biking. 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 Vital Signs Temp Pulse Resp BP Pulse Ox 36.4 C 75 14 110/77 93 01/15/17 08:55 01/15/17 08:55 01/15/17 08:55 01/15/17 08:55 01/15/17 08:55 Laboratory Results 01/15/17 03:30 01/14/17 05:00 01/14/17 01/15/17 01/16/17 05:59 05:59 05:59 Intake Total 1100 1800 Output Total 625 1 Balance 475 1799 PT 17.2 SEC (12.0-15.0) H 01/13/17 13:04 INR 1.41 (0.83-1.16) H 01/13/17 13:04 Physical Exam - Physical Exam General Appearance: alert, no apparent distress Respiratory: No respiratory distress, No accessory muscle use Abdomen: distended (mild) Skin: normal color, warm/dry Extremities: No pedal edema Neuro/Psych: alert, oriented x 3 ICD10 Worksheet Patient Problems: Problems Problem Status Onset Chest pain Acute Elevated troponin Acute Hypokalemia Acute Nausea & vomiting Acute Occipital stroke Acute Palliative care encounter Acute Pancreatic cancer Acute Vision changes Acute Weakness Acute - ICD10 Problem Qualifiers (1) Palliative care encounter
--- NOTE | 2017-01-15 13:39 | HOSPPROG ---
Hospitalist Progress Note Assessment/Plan: CVA with blurred vision - MRI suggestive of shower emboli with multiple b/l supra and infratentorial infarcts along with subacute occipital infarct. Suspect cardioembolic source, echo neg for LV thrombus. Opting to continue care on 1N for oncology support rather than telemetry. Daily EKG's not showing a fib. Per onc, he is not a good candidate for anticoagulation given limited life expectancy. Cont daily ASA. Appreciate neurology input. Metastatic pancreatic cancer - No further treatment options per onc due to poor performance status. Considering hospice, palliative care consult today. Pain control with MS Contin and oral dilaudid. Cont anti-emetics for nausea. Polymicrobial bacteremia in the setting of ascending cholangitis / hepatic abscesses with liver drains present - on IV ertapenem and daptomycin, followed by Dr. Ortega. Last day of atbx is today. 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 Elevated troponin - trop is flat, possibly chronic. Pt is chest pain free. No further w/u given limited life expectancy. DNR Dispo - cont inpt, palliative care consult today, plan for hospice eval tomorrow Subjective: Pt reports vision is a bit better today. No fevers. Appetite is good. Pain is fairly well controlled. Still quite wobbly on his feet. Objective: Vital Signs Temp Pulse Resp BP Pulse Ox 36.4 C 70 16 101/51 L 91 L 01/15/17 12:50 01/15/17 12:50 01/15/17 12:50 01/15/17 12:50 01/15/17 12:50 Laboratory Results 01/15/17 03:30 01/14/17 05:00 01/14/17 01/15/17 01/16/17 05:59 05:59 05:59 Intake Total 1100 1800 Output Total 625 1 Balance 475 1799 PT 17.2 SEC (12.0-15.0) H 01/13/17 13:04 INR 1.41 (0.83-1.16) H 01/13/17 13:04 - Physical Exam Constitutional: no apparent distress Eyes: PERRL Ears, Nose, Mouth, Throat: moist mucous membranes Cardiovascular: regular rate and rhythym Respiratory: no respiratory distress, clear to auscultation Gastrointestinal: normoactive bowel sounds Skin: warm Musculoskeletal: generalized weakness Neurologic: AAOx3 Psychiatric: interacting appropriately ICD10 Worksheet Patient Problems: Problems Problem Status Onset Chest pain Acute Elevated troponin Acute Hypokalemia Acute Nausea & vomiting Acute Occipital stroke Acute Palliative care encounter Acute Pancreatic cancer Acute Vision changes Acute Weakness Acute
[2017-01-15] MEDS ORDERED: ASPIRIN 81 MG CHEWABLE TAB PO ONE (13:50)
--- NOTE | 2017-01-15 13:50 | SOAPPROG ---
SOAP Progress Note Assessment/Plan: A/P: * Refractory nausea: improvement with addition of dex. Cont. scheduled Zofran. If continued nausea, would add olanzapine (5 mg QD). * Hepatic abscesses: will complete abx 01/15/17. Probably can d/c anterior drain. Posterior drain still with some output. Will discuss with Dr. Ortega on Sunday. * Embolic strokes: brain MRI with multiple strokes c/w emboli. ECHO neg (not great quality). EKG normal. He is high risk for bleeding and therefore will not anticoagulate. ASA ok. He and I discussed and he is comfortable with that. * Metastatic pancreatic cancer: he is not a candidate for further therapy given his poor performance status. [facility] meeting tomorrow. DNR. 01/15/17 13:55 Subjective: Nausea improved. Feels it is adequately managed right now. Pain control adequate. Not using a lot of breakthrough meds. Perhaps some mild improvement in vision. Meeting with [facility] tomorrow. O: VSS Gen: cachectic, NAD, A&O. Lungs: breathing comfortably. Laboratory Tests 01/14/17 01/15/17 05:00 03:30 WBC 20.06 H Hgb 11.3 L Plt Count 165 Sodium 132 L Potassium 4.6 Chloride 102 Carbon Dioxide 26 BUN 15 Creatinine 0.7 Glucose 181 H Total Bilirubin 1.0 AST 57 ALT 46 Alkaline Phosphatase 157 H Objective: Vital Signs Temp Pulse Resp BP Pulse Ox 36.4 C 70 16 101/51 L 91 L 01/15/17 12:50 01/15/17 12:50 01/15/17 12:50 01/15/17 12:50 01/15/17 12:50 Laboratory Results 01/15/17 03:30 01/14/17 05:00 01/14/17 01/15/17 01/16/17 05:59 05:59 05:59 Intake Total 1100 1800 Output Total 625 1 Balance 475 1799 PT 17.2 SEC (12.0-15.0) H 01/13/17 13:04 INR 1.41 (0.83-1.16) H 01/13/17 13:04 ICD10 Worksheet Patient Problems: Problems Problem Status Onset Chest pain Acute Elevated troponin Acute Hypokalemia Acute Nausea & vomiting Acute Occipital stroke Acute Palliative care encounter Acute Pancreatic cancer Acute Vision changes Acute Weakness Acute
--- NOTE | 2017-01-15 14:05 | NEUROPROG ---
Assessment: Today's visit was mainly spent in counseling and coordination of care. We visited for a total of 25 mins in [id number] time. Mr. Quesada was seen on rounds today in the company of his significant other and friends. He has a background of end-stage metastatic pancreatic cancer. He was admitted with nausea, dizziness and visual disturbance in the left homonymous plummer. He was found to have multiple areas of cortical and subcortical punctate infarcts in both hemispheres and spanning the anterior and posterior circulations, invoking a mechanism of proximal embolization. He had a suboptimal TTE without a bubble study. He continues to sense blurred vision in the left hemifields. He also continues to feel unsteady on his feet. His dizziness and nausea are still present but improving. The main concern going forward was secondary prevention of stroke, with particular focus on antithrombotic therapy. We discussed how normally he would be anticoagulated, but he is high risk for hemorrhage from a cancer standpoint per his oncologist. Therefore, we have settled on ASA 325mg daily for secondary prevention. He has evidence of liver synthetic dysfunction with multiple hepatic insults and active pathologic processes, so statin would be contraindicated. Going forward, ASA and normotension would be the best prevention strategies. We discussed possible mechanistic possibilities for his stroke, ranging from cardioembolism from afib to paradoxical embolization from DVT (LE DVT, iliocaval compression from extrinsic mass). Given we aren't going to anticoagulate, we are holding on aggressive investigations. Given the overall clinical picture, namely refractory metastatic cancer, and now strokes, I think shifting goals to a palliative approach would be reasonable. They are already engaging with our palliative care colleagues. Questions and concerns addressed at length with patient, family, friends. Case discussed with Dr. Corrales. Will sign off. Please recall PRN. Objective: Vital Signs Temp Pulse Resp BP Pulse Ox 36.4 C 70 16 101/51 L 91 L 01/15/17 12:50 01/15/17 12:50 01/15/17 12:50 01/15/17 12:50 01/15/17 12:50 Laboratory Results 01/15/17 03:30 01/14/17 05:00 01/14/17 01/15/17 01/16/17 05:59 05:59 05:59 Intake Total 1100 1800 Output Total 625 1 Balance 475 1799 PT 17.2 SEC (12.0-15.0) H 05/27/17 13:04 INR 1.41 (0.83-1.16) H 01/13/17 13:04 Allergies/Adverse Reactions: No Known Allergies Allergy (Verified 11/12/15 09:12)
[2017-01-15] MEDS: HYDROmorphONE/DILAUDID 4 MG TAB PO PRN (14:24)
[2017-01-15] MEDS: POLYETHYLENE GLYCOL 3350 17 GM PKT PO PRN (14:48)
[2017-01-15] MEDS: D5W NS W/ 20 KCl/L 1,000 ML IV SCH (15:54)
[2017-01-16 03:48] LABS: % IMMATURE GRANULYOCYTES 0.5 % (0.0-1.1); ABSOLUTE IMMATURE GRANULOCYTES 0.09 10^3/uL (0.00-0.10); ADD DIFF? NO; ADD MORPH? NO; ADD SCAN? NO; ATYPICAL LYMPHOCYTE FLAG 10 (0-99); FRAGMENT RBC FLAG 0 (0-99); HEMATOCRIT 32.8 % (40.0-51.0); HEMOGLOBIN 10.8 g/dL (13.7-17.5); LEFT SHIFT FLG 0 (0-99); LIPEMIA HEMOLYSIS FLAG 80 (0-99); MEAN CELL HEMOGLOBIN 31.5 pg (27.9-34.1); MEAN CELL HEMOGLOBIN CONCENTR. 32.9 g/dL (32.4-36.7); MEAN CELL VOLUME 95.6 fL (81.5-99.8); PLATELET CLUMPS FLAG 0 (0-99); PLATELET COUNT 167 10^3/uL (150-400); RED BLOOD CELL COUNT 3.43 10^6/uL (4.40-6.38); RED CELL DISTRIBUTION WIDTH 15.2 % (11.5-15.2)
[2017-01-16 04:07] LABS: ALANINE AMINOTRANSFERASE 47 IU/L (21-72); ALBUMIN 2.2 g/dL (3.5-5.0); ALKALINE PHOSPHATASE 155 IU/L (38-126); ANION GAP 1 mEq/L (8-16); ASPARTATE AMINOTRANSFERASE 42 IU/L (17-59); BILIRUBIN,TOTAL 0.7 mg/dL (0.1-1.4); CARBON DIOXIDE 24 mEq/l (22-31); CHLORIDE 105 mEq/L (97-110); CREATININE 0.7 mg/dL (0.7-1.3); GLOMERULAR FILTRATION RATE > 60; GLUCOSE 130 mg/dL (70-100); POTASSIUM 5.2 mEq/L (3.5-5.2); SODIUM 130 mEq/L (134-144); TOTAL PROTEIN 5.9 g/dL (6.3-8.2)
[2017-01-16] MEDS: ONDANSETRON 4 MG/2 ML VIAL IVP SCH ×3 (06:36→21:26)
[2017-01-16] MEDS: ENOXAPARIN 40 MG/0.4 ML SYR SC SCH (09:51)
[2017-01-16] MEDS: POTASSIUM CL 20 MEQ TAB PO SCH ×2 (09:51→21:36)
[2017-01-16] MEDS: ASPIRIN 325 MG TAB PO SCH (09:51)
[2017-01-16] MEDS: DEXAMETHASONE 4 MG/ML VIAL IVP SCH ×2 (09:51→20:50)
[2017-01-16] MEDS: morphINE SR 15 MG TAB PO SCH ×2 (09:52→20:50)
--- NOTE | 2017-01-16 12:51 | SOAPPROG ---
SOAP Progress Note Assessment/Plan: Assessment: 1.) Pancreatic Cancer, having made plans for Home Hospice care, with goal of sx. relief and support for patient and family. Plans for Hospice evaluation and home care planned. 2.) Hepatic abscess- with completion of Antibiotics, as D/W last evening , will ask IR to determine if they can remove the anterior Hepatic external drain for now. D/W patient today. 3.) Multiple embolic CVA, by clinical presentation: Appreciate Neurology input. Continue ASA QD 325 mg for now. 4.) Symptom management: pt. states he is getting adequate analgesia and anti- emetic support. Plan: 1.) See radha discussion/plans. 01/16/17 12:51 Subjective: Had bowel movement, and therefore able to resume the analgesics and anti- emetics. Still notes Left eye visual change-blurred vision due to embolic strokes. Objective: afebrile, VSS as noted here no facial assymetry, anicteric pupils equal. Neck- supple Chest- diminished breath sounds at Left lung base CVS- RSR, no extra HS ABD- anterior and posterior external Hepatic abscess tubes intact and NT, small output of bilious looking drainage, BS+ EXT- no edema., skin intact. Labs as noted here.. Vital Signs Temp Pulse Resp BP Pulse Ox 36.6 C 70 16 113/75 92 01/16/17 08:31 01/16/17 08:31 01/16/17 08:31 01/16/17 08:31 01/16/17 08:31 Laboratory Results 01/16/17 03:30 01/16/17 03:30 01/15/17 01/16/17 01/17/17 05:59 05:59 05:59 Intake Total 1800 1900 Output Total 1 835 250 Balance 1799 1065 -250 PT 17.2 SEC (12.0-15.0) H 01/13/17 13:04 INR 1.41 (0.83-1.16) H 01/13/17 13:04 ICD10 Worksheet Patient Problems: Problems Problem Status Onset Chest pain Acute Elevated troponin Acute Hypokalemia Acute Nausea & vomiting Acute Occipital stroke Acute Palliative care encounter Acute Pancreatic cancer Acute Vision changes Acute Weakness Acute
--- NOTE | 2017-01-16 13:50 | PCMIDPN ---
Assessment/Plan: I came by for social visit for this 66-year-old male with metastatic pancreatic cancer complicated by biliary obstruction, ascending cholangitis, liver abscess and polymicrobial bacteremia who I was caring for as an outpatient with continuation of antibiotic therapy from hospitalization at outside hospital in [place]. patient's functional status has continued to decline and noted transition to hospice care I reinforced that suppressive antibiotic therapy is not helpful in this Care setting. I do think it is reasonable to take out the drain that was associated with liver abscess at it has minimal output. Objective: Vital Signs Temp Pulse Resp BP Pulse Ox 36.5 C 68 16 117/70 94 01/16/17 11:57 01/16/17 11:57 01/16/17 11:57 01/16/17 11:57 01/16/17 11:57 Laboratory Results 01/16/17 03:30 01/16/17 03:30 01/15/17 01/16/17 01/17/17 05:59 05:59 05:59 Intake Total 1800 1900 Output Total 1 835 250 Balance 1799 1065 -250 ICD10 Worksheet Patient Problems: Problems Problem Status Onset Chest pain Acute Elevated troponin Acute Hypokalemia Acute Nausea & vomiting Acute Occipital stroke Acute Palliative care encounter Acute Pancreatic cancer Acute Vision changes Acute Weakness Acute
[2017-01-16] MEDS ORDERED: IOPAMIDOL (ISOVUE-300) 100 ML BTL ONE (14:24)
[2017-01-16] MEDS: HYDROmorphONE/DILAUDID 4 MG TAB PO PRN (14:40)
--- NOTE | 2017-01-16 17:39 | HOSPPROG ---
Hospitalist Progress Note Assessment/Plan: Metastatic pancreatic cancer - Progression of disease on 1st and 2nd line chemo. No further treatment options per onc due to poor performance status. Planning for home hospice tomorrow. Pain control with MS Contin and oral dilaudid. Cont anti-emetics for nausea. CVA with blurred vision - MRI suggestive of shower emboli with multiple b/l supra and infratentorial infarcts along with subacute occipital infarct. Suspect cardioembolic source, echo neg for LV thrombus. Opting to continue care on for oncology support rather than telemetry. Daily EKG's not showing a fib. Per onc, he is not a good candidate for anticoagulation given limited life expectancy. Cont daily ASA. Appreciate neurology input. Polymicrobial bacteremia in the setting of ascending cholangitis / hepatic abscesses with liver drains present - Completed prolonged course of Ertapenem and Daptomycin per ID, last dose yesterday. Both liver drains pulled today by IR. Elevated troponin - trop is flat, possibly chronic. Pt is chest pain free. No further w/u given limited life expectancy. DNR Dispo - d/c home on hospice in am Subjective: Pt doing ok. He is emotional, tearful. No fevers. Pain controlled. Still with blurred vision, unsteady ambulation. Objective: Vital Signs Temp Pulse Resp BP Pulse Ox 36.8 C 76 16 122/78 H 93 01/16/17 16:00 01/16/17 16:00 01/16/17 16:00 01/16/17 16:00 01/16/17 16:00 Laboratory Results 01/16/17 03:30 01/16/17 03:30 01/15/17 01/16/17 01/17/17 05:59 05:59 05:59 Intake Total 1800 1900 400 Output Total 1 835 250 Balance 1799 1065 150 PT 17.2 SEC (12.0-15.0) H 01/13/17 13:04 INR 1.41 (0.83-1.16) H 01/13/17 13:04 - Physical Exam Constitutional: no apparent distress Ears, Nose, Mouth, Throat: moist mucous membranes Cardiovascular: regular rate and rhythym Respiratory: no respiratory distress Gastrointestinal: normoactive bowel sounds, soft, non-tender abdomen Skin: warm Musculoskeletal: full muscle strength Neurologic: AAOx3 Psychiatric: interacting appropriately ICD10 Worksheet Patient Problems: Problems Problem Status Onset Chest pain Acute Elevated troponin Acute Nausea & vomiting Acute Occipital stroke Acute Palliative care encounter Acute Pancreatic cancer Acute Vision changes Acute Weakness Acute Hypokalemia Acute
--- NOTE | 2017-01-16 18:05 | PDPCPN ---
Palliative Care Progress Note Assessment/Plan: HPI: Jose Manuel Quesada is a 66 yo male with PMH metastatic pancreatic ca with mets to lung and MV repair admitted to the hospital with increasing nausea/vomiting and dizziness. Pancreatic ca dx fall 2014 with biliary obstruction s/p stents. Had 2 rounds of chemotherapy with last finishing 10/2016 due to progression. Has had complications with continued biliary obstruction and cholangitis with stent replacement 2 weeks ago at the [facility]. On admission found to have multiple embolic strokes likely cardiac in nature. Started on steroids to help with symptoms of nausea/vomiting and abdominal pain. Palliative care consulted for complex medical decision making. Met with Jose Manuel, Loco Bowden, and premium representative at the bedside this morning. Reviewed the discussion from yesterday with Dennise. Discussed hospice care and answered questions and concerns. Dennise supports Jose Manuel's decision for hospice care. We discussed looking into caregivers for future use as well as planning equipment for safety. Assessment: Physical: - Pain: abdominal pain -on MScontin 15mg BID - continue dilaudid PRN - also on steroids dex 4mg BID which may provide some relief - Nausea/vomiting: - on zofran and phenergan. - On dex per oncology - could try zyprexa per oncology -recommend scopolamine patch if thought due to [employer] reasons. - constipation - dulcolax supp or fleet enema today - bowel regimen with senna and colace Emotional/psychological: tearful at times. Feels he has a differing opinion than his life partner Advanced Care Planning: Is patient decisional?: Yes Code Status: DNR POA: Dennise sig other is MDPOA. Plan: Home with [facility] hospice care tomorrow. Jose Manuel does not want to continue IV antibiotics or come back to the hospital. His focus is on comfort. Subjective: I still haven't had a bowel movement Objective: Vital Signs Temp Pulse Resp BP Pulse Ox 36.8 C 76 16 122/78 H 93 01/16/17 16:00 01/16/17 16:00 01/16/17 16:00 01/16/17 16:00 01/16/17 16:00 Laboratory Results 01/16/17 03:30 01/16/17 03:30 01/15/17 01/16/17 01/17/17 05:59 05:59 05:59 Intake Total 1800 1900 400 Output Total 1 835 250 Balance 1799 1065 150 PT 17.2 SEC (12.0-15.0) H 01/13/17 13:04 INR 1.41 (0.83-1.16) H 01/13/17 13:04 Physical Exam - Physical Exam General Appearance: alert, no apparent distress Respiratory: No respiratory distress, No accessory muscle use Skin: normal color, warm/dry Extremities: pedal edema Neuro/Psych: alert, oriented x 3 ICD10 Worksheet Patient Problems: Problems Problem Status Onset Chest pain Acute Elevated troponin Acute Nausea & vomiting Acute Occipital stroke Acute Palliative care encounter Acute Pancreatic cancer Acute Vision changes Acute Weakness Acute Hypokalemia Acute - ICD10 Problem Qualifiers (1) Palliative care encounter
[2017-01-17] MEDS: ONDANSETRON 4 MG/2 ML VIAL IVP SCH (05:29)
[2017-01-17 05:45] LABS: % IMMATURE GRANULYOCYTES 0.9 % (0.0-1.1); ABSOLUTE IMMATURE GRANULOCYTES 0.13 10^3/uL (0.00-0.10); ADD DIFF? NO; ADD MORPH? NO; ADD SCAN? NO; ATYPICAL LYMPHOCYTE FLAG 0 (0-99); FRAGMENT RBC FLAG 0 (0-99); HEMATOCRIT 33.8 % (40.0-51.0); LEFT SHIFT FLG 0 (0-99); LIPEMIA HEMOLYSIS FLAG 80 (0-99); MEAN CELL HEMOGLOBIN CONCENTR. 32.5 g/dL (32.4-36.7); MEAN CELL VOLUME 95.2 fL (81.5-99.8); MEAN PLATELET VOLUME 10.2 fL (8.7-11.7); PLATELET CLUMPS FLAG 0 (0-99); PLATELET COUNT 160 10^3/uL (150-400); RED BLOOD CELL COUNT 3.55 10^6/uL (4.40-6.38)
[2017-01-17 06:08] VITALS: O2SAT 91
[2017-01-17 07:53] LABS: ALANINE AMINOTRANSFERASE 43 IU/L (21-72); ALBUMIN 2.4 g/dL (3.5-5.0); ALKALINE PHOSPHATASE 170 IU/L (38-126); ANION GAP 6 mEq/L (8-16); ASPARTATE AMINOTRANSFERASE 39 IU/L (17-59); BILIRUBIN,TOTAL 0.8 mg/dL (0.1-1.4); CALCIUM 7.8 mg/dL (8.5-10.4); CARBON DIOXIDE 23 mEq/l (22-31); CHLORIDE 101 mEq/L (97-110); CREATININE 0.7 mg/dL (0.7-1.3); GLOMERULAR FILTRATION RATE > 60; GLUCOSE 124 mg/dL (70-100); POTASSIUM 4.5 mEq/L (3.5-5.2); SODIUM 130 mEq/L (134-144); TOTAL PROTEIN 5.8 g/dL (6.3-8.2)
[2017-01-17] MEDS: POTASSIUM CL 20 MEQ TAB PO SCH (08:48)
[2017-01-17] MEDS: DEXAMETHASONE 4 MG/ML VIAL IVP SCH (08:48)
[2017-01-17] MEDS: morphINE SR 15 MG TAB PO SCH (08:48)
[2017-01-17] MEDS: ASPIRIN 325 MG TAB PO SCH (08:48)
[2017-01-17] MEDS: ENOXAPARIN 40 MG/0.4 ML SYR SC SCH (08:50)
[2017-01-17 09:14] VITALS: BP 134/87; PULSE 70; RESP 18; TEMP 97.8
--- NOTE | 2017-01-17 11:58 | PDDCSUM ---
Discharge Summary Discharge Summary: HPI/HOSPITAL COURSE: The patient is 66 yo male who was admitted with pancreatic cancer, CVA, and polymicrobial bacteremia. Please see admission H&P. Unfortunately the malignancy is very advanced and the patient is being discharged with home hospice. Please see below for details per problem list DDX: Metastatic pancreatic cancer - Progression of disease on 1st and 2nd line chemo. No further treatment options per onc due to poor performance status. Planning for home hospice today. Pain control with MS Contin and oral dilaudid. Cont anti-emetics for nausea. CVA with blurred vision - MRI suggestive of shower emboli with multiple b/l supra and infratentorial infarcts along with subacute occipital infarct. Suspect cardioembolic source, echo neg for LV thrombus. he is not a good candidate for anticoagulation given limited life expectancy. Cont daily ASA. Appreciate neurology input. Polymicrobial bacteremia in the setting of ascending cholangitis / hepatic abscesses with liver drains present - Completed prolonged course of Ertapenem and Daptomycin per ID, last dose 01/15. Both liver drains pulled yesterday by IR. Elevated troponin - trop is flat, possibly chronic. Pt is chest pain free. No further w/u given limited life expectancy. DNR Exam: VSS NAD AAOX3 MMM NO JVD RRR CTAB NO LE EDEMA MED: SEE MED REC TOTAL CARE TIME SPENT ON DISCHARGE IS 35 MINS
[2017-01-17] MEDS ORDERED: ONDANSETRON DISINTEGRATING 4 MG TAB PO ONE (12:35)
--- NOTE | 2017-01-17 13:17 | SOAPPROG ---
SOAP Progress Note Assessment/Plan: Assessment: 1.) Pancreatic Cancer, having made plans for Home Hospice care, with goal of sx. relief and support for patient and family. Pt has agreed with home Hospice care, with plans for discharge with home Hospice care accepted and arranged. 2.) Hepatic abscess- with completion of Antibiotics, stable with both Biliary tubes now removed. Site is NT and dressing is dry/nonbloody/intact. 3.) Multiple embolic CVA, by clinical presentation: Appreciate Neurology input. Continue ASA QD 325 mg for now. 4.) Symptom management: pt. states he is getting adequate analgesia and anti- emetic support. Plan: 1.) See above discussion/plans. Discharge home today. I have informed Dr. Marlena Snyder of his discharge. 01/17/17 13:15 Subjective: Stable overnight and this afternoon. No new sx. Objective: Afebrile, VSS as noted here HEENT- anicteric, no oral lesions, no facial assymetry Neck- supple Chest- clear CVS- RSR, ABD- soft, site of External biliary drain tubes removed from is bandaged. Bandage is dry/intact. EXT- benign. See lab data here: Vital Signs Temp Pulse Resp BP Pulse Ox 36.6 C 70 18 134/87 H 91 L 01/17/17 08:00 01/17/17 08:00 01/17/17 08:00 01/17/17 08:00 01/17/17 08:00 Laboratory Results 01/17/17 05:35 01/17/17 05:35 01/16/17 01/17/17 01/18/17 05:59 05:59 05:59 Intake Total 1900 1450 Output Total 835 550 Balance 1065 900 PT 17.2 SEC (12.0-15.0) H 01/13/17 13:04 INR 1.41 (0.83-1.16) H 01/13/17 13:04 ICD10 Worksheet Patient Problems: Problems Problem Status Onset Chest pain Acute Elevated troponin Acute Nausea & vomiting Acute Occipital stroke Acute Palliative care encounter Acute Pancreatic cancer Acute Vision changes Acute Weakness Acute Hypokalemia Acute
[2017-01-17] MEDS ORDERED: CALCIUM CARBONATE 500 MG CHEWABLE TAB PO SCH (16:00)
== END 2017-01-17 13:58 | disposition hospice, home (50) | DRG 64 ==
LOC: OBSVTOIN 14:03 → F1N 16:07
PROVIDERS: ADMIT Family Medicine; ATTEND Family Medicine
DX: I63.449 Cerebral infarction due to embolism of unspecified cerebellar artery (principal); K75.0 Abscess of liver; R78.81 Bacteremia; C78.7 Secondary malignant neoplasm of liver and intrahepatic bile duct; C25.9 Malignant neoplasm of pancreas, unspecified; I25.10 Atherosclerotic heart disease of native coronary artery without angina pectoris; Z66 Do not resuscitate; Z51.5 Encounter for palliative care
CPT/HCPCS: 92610-GN; 96374; 97116-GP; 97162-GP; 97166-GO; 97530-GP; 97535-GO; A9585; C1769; G8978-GP-CK; G8979-GP-CJ; G8980-GP-CJ; G8987-GO-CK; G8988-GO-CJ; G8996-GN-CI; G8997-GN-CI; J0878; J1100; J1170; J1335; J1642; J1650; J2405; J2550; Q9967